=== PATIENT | male | born 1990 | race Caucasian/White ===

== ENCOUNTER 2021-10-12 20:52 | Emergency (ER) | payer BC, SELFPAY ==
[2021-10-12] VITALS (7 sets, daily range): BP systolic 148–182; BP diastolic 83–118; PULSE 88–98; RESP 16–24; TEMP 36.6; O2SAT 93–96
--- NOTE | ~2021-10-12 | XR_ITS ---
XR chest 2V DATE: 10/12/2021 21:45 INDICATION: Shortness of breath starting today TECHNIQUE: PA and lateral views COMPARISON: None FINDINGS: There is bilateral hyperinflation with relative flattening the diaphragm, consistent with o bstructive airways disease. No pulmonary infiltrate or consolidation, pleural effusion or pulmonary v ascular congestion or pneumothorax. Normal heart size. Some calcifications overlie the anterior upper abdomen on the lateral view, possibly gallstones. IMPRESSION: Bilateral hyperinflation Possible calcified gallstones Reviewed, dictated and finalized at location A.
--- NOTE | 2021-10-12 21:24 | ED.GENADULT ---
HPI - General Adult General Chief complaint: Shortness of Breath/Dyspnea Stated complaint: SOB Time Seen by Provider: 10/12/21 20:53 History of Present Illness HPI narrative: 31-year-old male presented to the emergency room following exposure to welding fumes approximately 4 hours ago. Patient complains of shortness of breath, and wheezing. No medical problems. Related Data Allergies Allergy/AdvReac Type Severity Reaction Status Date / Time No Known Allergies Allergy Verified 10/12/21 20:57 Review of Systems Review of Systems: GENERAL: Well-appearing, well-nourished, and in no acute distress. HEAD: Normocephalic, atraumatic. EYES: PERRLA and EOMI. ENT: Nares clear, no rhinorrhea or epistaxis. Mucous membranes moist. NECK: Supple. No adenopathy or masses. No carotid bruits or JVD CHEST: Wheezes throughout HEART: Regular rate and rhythm. No murmur heard. Normal peripheral pulses. ABDOMEN: Soft, nontender, nondistended, normal active bowel sounds. EXTREMITIES: Normal range of motion. No edema. SKIN: Warm, dry, no rash. NEURO: No focal deficits. Alert and oriented x3. PSYCH: Normal mood and affect. Course Course Emergency Course: 2199: Poison control notified by patient's exposure. Poison control states that if patient has responded well to therapy and is no longer exhibiting any symptoms he will be safe to discharge and no further work-up is needed Vital Signs Vital signs: Vital Signs Temperature 36.6 C 10/12/21 20:54 Pulse Rate 98 10/12/21 20:54 Respiratory Rate 24 H 10/12/21 20:54 Blood Pressure 182/118 H 10/12/21 20:54 Pulse Oximetry 93 10/12/21 20:54 Temperature 36.6 C 10/12/21 20:54 Pulse Rate 95 10/12/21 21:51 Respiratory Rate 16 10/12/21 21:51 Blood Pressure 170/84 H 10/12/21 21:51 Pulse Oximetry 95 10/12/21 21:51 Medical Decision Making MDM Narrative Medical decision making narrative: 31-year-old male presented emergency room status post exposure to welding fumes. Patient responded well to a breathing treatment, and 125 mg of Solu-Medrol. Poison control was notified at, and recommend discharge if patient is symptom-free. Medical Records Medical records reviewed: Yes I reviewed the external patient's medical records. Vital Signs Vital Signs: Vital Signs Temperature 36.6 C 10/12/21 20:54 Pulse Rate 98 10/12/21 20:54 Respiratory Rate 24 H 10/12/21 20:54 Blood Pressure 182/118 H 10/12/21 20:54 Pulse Oximetry 93 10/12/21 20:54 Temperature 36.6 C 10/12/21 20:54 Pulse Rate 95 10/12/21 21:51 Respiratory Rate 16 10/12/21 21:51 Blood Pressure 170/84 H 10/12/21 21:51 Pulse Oximetry 95 10/12/21 21:51 Imaging Data Radiologist's impression: Impressions Chest X-Ray 10/12/21 21:46 IMPRESSION: Bilateral hyperinflation Possible calcified gallstones Discharge Plan Discharge Clinical Impression: Exposure to industrial fumes, Shortness of breath, Wheezing Patient Disposition: Home, Self-Care Condition: Stable Instructions: Antibiotic Form Prescriptions: New prednisone 20 mg tablet 40 mg PO DAILY Qty: 10 RF: 0 albuterol sulfate 90 mcg/actuation HFA aerosol inhaler 1 puff inhalation QID Qty: 6.7 RF: 0 Follow-up/Referrals: PHYSICIAN NOT ON STAFF,NONSTAFF [Primary Care Provider] - Time of Disposition: 22:29
[2021-10-12] MEDS: IPRATROPIUM BR 0.02% INH SOLN 0.5 MG/2.5 ML VIAL INHALATION (21:33)
[2021-10-12] MEDS: ALBUTEROL SULFATE NEB 2.5 MG/0.5 ML INH 5 MG INHALATION (21:33)
[2021-10-12] MEDS: methylPREDNISolone SOD SUCC 125 MG VIAL IV PUSH (21:46)
[2021-10-12] MEDS: ALBUTEROL SULFATE (*SP) INHALER 1 PUFF (21:49)
--- NOTE | 2021-10-12 22:09 | PC.NURSE ---
RN called poison control due to exposure to welding fumes. . States there is no tox screen to be done. PT is at risk for resp distress, fever, chills, muscle aches, thirst, and sore throat. Symptoms can begin 3 to 10 hours after exposure. Symptoms should resolve on their own after 1 to 2 days. Pt should get oxygen, steroids, and bronchodilators.
== END 2021-10-12 22:40 | disposition home or self-care (01) ==
PROVIDERS: Emergency Provider Nurse Practitioner Family
DX: T56.91XA Toxic effect of unspecified metal, accidental (unintentional), initial encounter (principal); R06.02 Shortness of breath; R06.2 Wheezing
CPT/HCPCS: 71046; 94640; 96374; 99284; A9270; J2930